=== PATIENT | male | born 1940 | race Caucasian/White ===

== ENCOUNTER 2019-05-18 15:22 | Observation (INO) | payer MEDICARE, OTHER ==
[~2019-05-18] VITALS: Ht 152.4 cm; Wt 99.0 kg
[~2019-05-18 15:22] MED LIST: ASPIRIN LOW81 M1 PO; ASPIRIN325 MG PO; CELEBREX100 M1 PO; CORTISPORIN OTI10 ML AU; COUMADIN2.5 MG PO; FLOMAX0.4 M1 PO; NIACIN SR500 M1 PO; NIACIN250 M4; NORCO1 TA1 PO; ZETIA10 MG PO
--- NOTE | 2019-05-18 15:39 | NUR ---
PT TO ROOM 12, EKG DONE UPON ARRIVAL.
--- NOTE | 2019-05-18 15:45 | NUR ---
PT AOX4 PRESENTS WITH PAIN 2/10. LUNGS SOUND CLEAR BILATERALLY, PT DENIED TENDERNESS IN ABDOMEN. MD IN ROOM. EKG DONE AND PLAN OF CARE EXPLAINED TO PT. CALL LIGHT WITHIN REACH, WILL CONTINUE TO MONITOR.
--- NOTE | 2019-05-18 16:07 | NUR ---
ADMINSITERED MEDICATION. BEFORE ADMINISTRATION, WAY OF TRANSPORTATION WAS VERIFIED TO MAKE SURE PT WAS NOT GOING TO BE DRIVING AFTERWARDS. PLAN OF CARE DISCUSSED, ALONG WITH WAIT TIME AND CALL LIGHT WITHIN REACH.
[2019-05-18 16:44] LABS: ACT PARTIAL THROMBO TIME 33.6 SECONDS (20.0-32.5); INTERNATIONAL NORMALIZED RATIO 1.2 RATIO (0.7-1.3)
--- NOTE | 2019-05-18 17:00 | NUR ---
PT AOX4 RESTING ON STRETCHER. PT REQUESTED TWO BLANKETS. REQUEST FULLFILLED WILL CONTINUE TO MONIOR.
[2019-05-18 17:01] LABS: ALBUMIN 3.7 g/dL (3.2-5.0); ALKALINE PHOSPHATASE 55 u/l (38-126); AMYLASE 31 u/l (30-110); ANION GAP 14 (6-22 (CALC)); BILIRUBIN, TOTAL 0.9 mg/dL (0.0-1.4); BUN 19 mg/dL (8-23); BUN/CREATININE RATIO 22 (12-20 (CALC)); CARBON DIOXIDE 25 mmol/l (22-30); CHLORIDE 93 mmol/l (95-108); CREATININE 0.8 mg/dL (0.7-1.3); GFR > 60 ML/MIN (>=60 (CALC)); GFR FOR AFR.AMER. > 60 ML/MIN (>=60 (CALC)); LIPASE 27 u/l (23-300); POTASSIUM 3.8 mmol/l (3.5-5.1); SGOT/AST 36 u/l (19-48); SODIUM 128 mmol/l (137-146); TOTAL PROTEIN 6.5 g/dL (6.3-8.2)
[2019-05-18 17:27] LABS: HEMATOCRIT 34.3 % (39.0-50.0); HEMOGLOBIN 11.7 g/dl (14.0-18.0); IMMATURE GRANULOCYTES 0.3 % (0.0-5.0); MEAN CELL VOLUME 87.5 fL CALC (80.0-100.0); MEAN CORPUSCULAR HGB 29.8 pG CALC (26.0-32.0); MEAN CORPUSCULAR HGB CONC 34.1 g/L CALC (32.0-36.0); NEUT# 5.88 thou/uL (1.82-7.42); RED BLOOD COUNT 3.92 mill/uL (4.70-6.10); RED CELL DISTRI WIDTH 13.7 % (11.5-15.5)
[2019-05-18 17:55] LABS: URINE BILIRUBIN - DIPSTICK NEGATIVE (NEGATIVE); URINE BLOOD DIPSTICK TRACE-INTACT (NEGATIVE); URINE GLUCOSE - DIPSTICK 100 mg/dL (NEGATIVE); URINE KETONE 15 mg/dL (NEGATIVE); URINE LEUK ESTERASE NEGATIVE (NEGATIVE); URINE PH 5.5 (4.5-8.0); URINE PROTEIN - DIPSTICK 30 mg/dL (NEG-TRACE); URINE SPECIFIC GRAVITY 1.015
--- NOTE | 2019-05-18 18:00 | NUR ---
PT AOX4 RESTING ON STRETCHER. PT ADVISED OF WAIT TIME AND PLAN OF CARE. WILL CONTINUE TO MONITOR.
[2019-05-18 18:01] LABS: URINE NITRITE - DIPSTICK NEGATIVE (Negative)
[2019-05-18 18:02] LABS: URINE COLOR ORANGE; URINE SQUAMOUS EPITHELIAL CELL FEW EPI/hpf (0-FEW)
[2019-05-18] MEDS ORDERED: ATENOLOL25 MG PO (18:04)
--- NOTE | 2019-05-18 18:45 | NUR ---
PT REFUSED TO TAKE ASPIRIN BECAUSE HE MENTIONS THAT HIS DOCTOR SAID THAT IT CAN NOT BE TAKEN WITH THE BLOOD PRESSURE MEDICATION HE IS TAKING.
--- NOTE | 2019-05-18 19:07 | NUR ---
REPORT AND CARE RELINQUISHED TO RAYMOND.
--- NOTE | 2019-05-18 19:15 | NUR ---
PT RESTING. VSS.
--- NOTE | 2019-05-18 19:55 | NUR ---
UP TO BEDSIDE TO VOID. 350 CC OF IBANEZ ORANGE URINE
--- NOTE | 2019-05-18 20:14 | NUR ---
REPORT TO ICU
--- NOTE | 2019-05-18 20:17 | NUR ---
TO ICU VIA STRETCHER WITH PARTS PICKER
[2019-05-18 20:20] VITALS: BP 139/81
--- NOTE | 2019-05-18 20:20 | NUR ---
PT ARRIVED TO UNIT VIA STRETCHER; ALERT AND ORIENTED X 3. AMBULATED TO BED WITH STEADY GAIT. DENIES CHEST PAIN; REPORTS BILATERAL SHOULDER DISCOMFORT. RESPIRATIONS EVEN AND UNLABORED ON ROOM AIR; OXYGEN SATURATIONS 88-92% AFTER EXERTION AND TALKING. WEARS CPAP AT HS. OXYGEN APPLIED 2L VIA NC. DAUGHTER AT BEDSIDE. ORIENTED TO ROOM AND CALL LIGHT SYSTEM. PLAN OF CARE DICUSSED. PT ENCOURAGED TO VERBALIZE CONCERNS. STATES UNDERSTANDING. SAFETY MEASURES IN PLACE. CALL LIGHT WITHIN REACH.
[2019-05-18] MEDS ORDERED: XARELTO20 MG PO (21:02)
--- NOTE | 2019-05-18 21:18 | NUR ---
PT SITTING UP EATING DINNER. NO REQUESTS OR CONCERNS; PLEASANT AND TALKATIVE; HARD OF HEARING. 97% SPO2 WITH 2L NC IN PLACE. LILLI TOSE INTACT TO BLE. VSS.
[2019-05-18 21:30] VITALS: BP 131/68
[2019-05-18 22:30] VITALS: BP 130/70
--- NOTE | 2019-05-18 22:47 | NUR ---
DR. BAILEY NOTIFIED OF ELEVATED TROPONIN 0.145 AND PT CONTIION; C/O CHEST PAIN 08/21; SINUS RHYTHM ON TELEMTRY WITH PAC'S. NEW ORDERS TO GIVE ASA 324MG AND TRANSFER TO [facility]. DAUGHTER NOTIFIED VIA TELEPHONE AND VERBAL CONSENT RECEIVED FROM PATIENT.
--- NOTE | 2019-05-18 23:00 | NUR ---
SPOKE WITH EUGENE FROM TRANSFER CENTER; [employer] OPERATOR DR. SINGH AGREED TO ACCEPT PATIENT. PHYSICIAN REPORT GIVEN. FACE SHEET FAXED TO TRANSFER CENTER.
[2019-05-18 23:30] VITALS: BP 134/69
[2019-05-19 00:30] VITALS: BP 148/78
--- NOTE | 2019-05-19 00:30 | NUR ---
CALLED TRANSFER CENTER FOR UPDATE; SPOKE WITH EUGENE. STATES THAT IS WAITING FOR HOSPITALIST TO BECOME AVAILABLE TO PHYSICAN TO PHYSICIAN REPORT. PT RESTING ON LEFT SIDE WITH EYES CLOSED AND NO SIGNS OF DISTRESS. REPSIRATIONS EVEN AND UNLABORED ON OXYGEN. REMAINS SINUS RHYTHM ON TELEMETRY. WILL CONTINUE TO MONITOR.
[2019-05-19 01:30] VITALS: BP 117/69
--- NOTE | 2019-05-19 01:50 | NUR ---
TYLENOL GIVEN FOR TEMPERATURE OF 101.9 AND PT C/O BEING VERY COLD REQUESTING EXTRA BLANKETS. F/U TEMP OF 98.8 AND PT NOW SWEATING AND C/O BEING HOT. UPDATED ON TRANSFER. NO NEEDS AT THIS TIME. VOIDING CLEAR ORANGE URINE IN URINAL. IV SITE APPEARS HEALTHY AND FLUSHES. NO CHANGES IN HEART RHYTHM.
--- NOTE | 2019-05-19 02:27 | NUR ---
[facility] NOTIFED NURSE OF PHSYICIAN ACCEPTANCE BY DR. DEEPIKA GARCES; PT WILL GO TO [address] [place] [address] ROOM [address]. CALL REPORT TO [phone].
--- NOTE | 2019-05-19 02:29 | NUR ---
[facility] NOTIFIED OF TRANSPORT. ETA 3 HOURS.
[2019-05-19 02:30] VITALS: BP 102/59
[2019-05-19 03:30] VITALS: BP 132/71
--- NOTE | 2019-05-19 03:41 | NUR ---
PT ASLEEP WITH NO SIGNS OF DISTRESS. [facility] CALLED WITH UPDATE THAT THEY WILL ARRIVE FOR TRANSPORT WITHIN THE HOUR.
--- NOTE | 2019-05-19 03:58 | NUR ---
LAB AT BEDSIDE FOR SERIAL TROPONIN.
[2019-05-19 04:06] LABS: HEMATOCRIT 35.4 % (39.0-50.0); MEAN CELL VOLUME 87.6 fL CALC (80.0-100.0); MEAN CORPUSCULAR HGB 29.7 pG CALC (26.0-32.0); MEAN CORPUSCULAR HGB CONC 33.9 g/L CALC (32.0-36.0); RED BLOOD COUNT 4.04 mill/uL (4.70-6.10); RED CELL DISTRI WIDTH 13.7 % (11.5-15.5)
[2019-05-19 04:20] LABS: ANION GAP 12 (6-22 (CALC)); BUN 17 mg/dL (8-23); BUN/CREATININE RATIO 21 (12-20 (CALC)); CARBON DIOXIDE 26 mmol/l (22-30); CHLORIDE 98 mmol/l (95-108); CREATININE 0.8 mg/dL (0.7-1.3); GFR > 60 ML/MIN (>=60 (CALC)); GFR FOR AFR.AMER. > 60 ML/MIN (>=60 (CALC)); POTASSIUM 4.1 mmol/l (3.5-5.1); SODIUM 131 mmol/l (137-146)
--- NOTE | 2019-05-19 04:24 | NUR ---
[facility] ON UNIT.
--- NOTE | 2019-05-19 04:31 | NUR ---
Discharge instructions given. Patient verbalizes understanding of same. Discharged in stable condition via [facility] to [facility]. All belongings sent with pt.
--- NOTE | 2019-05-19 04:31 | NUR ---
REPORT CALLED TO HYACINTH AT [facility].
== END 2019-05-19 04:25 | disposition short-term general hospital (02) ==
LOC: ED 15:22 → ED-I 18:15 → ED 18:27 → ED-I 18:28 → ICU 20:20
PROVIDERS: ADMIT Internal Medicine; ATTEND Internal Medicine
DX: I21.4 Non-ST elevation (NSTEMI) myocardial infarction (principal); C61 Malignant neoplasm of prostate; I48.91 Unspecified atrial fibrillation; Z79.899 Other long term (current) drug therapy
CPT/HCPCS: Q9967